=== PATIENT | male | born 1970 | race Hispanic/Latino ===

== ENCOUNTER 2024-01-18 06:28 | Emergency (ER) | payer SELFPAY ==
--- NOTE | ~2024-01-18 | XR_ITS ---
Left ankle Technique: AP, oblique, and lateral views were obtained. Clinical History: Fracture Findings: There is acute fracture of the distal fibula at and just proximal to the level of the ankle mortise, with mild comminution and minimal displacement. Probable very small minimally displaced fra cture of the very anterior aspect of the distal tibial plafond on lateral view.. Ankle mortise and ot her visualized joint spaces are preserved. Soft tissues are otherwise unremarkable. Impression: Acute comminuted minimally displaced fracture the distal fibula, as detailed above. Probable small minimally displaced fracture at the anterior aspect of the distal tibial plafond on la teral view. Reviewed, dictated and finalized at location M. Impression: Acute comminuted minimally displaced fracture the distal fibula, as detailed ab ove. Probable small minimally displaced fracture at the anterior aspect of the dista l tibial plafond on lateral view.
--- NOTE | ~2024-01-18 | XR_ITS ---
XR knee RT 3V 01/18/2024 07:57 INDICATION: Right knee pain after fall PROCEDURE: 3 views right knee COMPARISON: No prior studies for comparison. FINDINGS: Fracture, dislocation or subluxation is not identified. The soft tissues appear within norm al limits. No foreign bodies are identified. IMPRESSION: 1: NO ACUTE BONE OR JOINT ABNORMALITY IDENTIFIED. Reviewed, dictated and finalized at location B.
--- NOTE | ~2024-01-18 | XR_ITS ---
Left foot Technique: AP, oblique, and lateral views were obtained. Clinical History: Injury Findings: Acute fracture the distal fibula at the level ankle mortise is present. No fracture seen of the foot itself. Joint spaces are preserved without erosive or degenerative change. Soft tissues are unremarkable. Impression: Acute fracture the distal fibula at the level of the ankle mortise. Consider dedicated ankle radiogra phic series to further evaluate the ankle. No fracture seen in the foot itself otherwise. Reviewed, dictated and finalized at location . Impression: Acute fracture the distal fibula at the level of the ankle mortise. Consider de dicated ankle radiographic series to further evaluate the ankle. No fracture seen in the foot itself otherwise.
[2024-01-18 06:34] VITALS: BP 143/106; PULSE 100; RESP 18; TEMP 37.1; O2SAT 100
[2024-01-18 06:39] VITALS: BP 143/106; PULSE 99; RESP 18; O2SAT 99
--- NOTE | 2024-01-18 08:07 | ED.LOWEXIN ---
HPI - Extremity Injury (Lower) General Chief Complaint: Extremity Injury, Lower Stated Complaint: left foot pain from fall, No LOC or blood thinner Time Seen by Provider: 01/18/24 07:01 History of Present Illness HPI Narrative: 53-year-old male presenting to the emergency department for evaluation after having a fall from a green house and injuring his left ankle. Patient states he also had some minor tenderness of his right knee. Patient denies striking his head denies loss of consciousness. Patient denies any associated chest pain or shortness breath. Patient does have increased pain with ambulation at the side of the left ankle. Patient does have associated swelling. Patient is neurovascularly intact. Related Data Allergies Allergy/AdvReac Type Severity Reaction Status Date / Time No Known Allergies Allergy Verified 01/18/24 08:15 Review of Systems Review of Systems: All systems reviewed & are unremarkable except as noted in HPI and below Exam Narrative: APPEARANCE: Well appearing, no pain, no distress, well-nourished. HEAD: normocephalic, atraumatic. EYES: PERRLA/EOMI, conjunctivae clear. NOSE: Normal no drainage EARS:TMS clear with good light reflex. THROAT: Pharynx clear, no exudate. NECK: Supple. No adenopathy, no masses. RESPIRATORY: Airway patent, respirations nonlabored. Clear to auscultation bilaterally, no rales, rhonchi, wheezing. CARDIOVASCULAR: Regular rate and rhythm without murmurs rubs or gallops. ABDOMINAL: Soft, nontender, nondistended, normal bowel sounds MUSCULOSKELETAL: Left ankle swelling with lateral tenderness, neurovascularly intact NEURO: Alert. Cranial nerves II through XII intact. Grossly intact SKIN: Warm, dry. Normal Color Course Course Emergency Course: Patient did feel improved with splinting and was comfortable the plan for discharge and close follow-up Vital Signs Vital signs: Vital Signs Temperature 98.7 F 01/18/24 06:34 Pulse Rate 100 01/18/24 06:34 Respiratory Rate 18 01/18/24 06:34 Blood Pressure 143/106 H 01/18/24 06:34 Pulse Oximetry 100 01/18/24 06:34 Oxygen Delivery Room Air 01/18/24 06:34 Temperature 98.7 F 01/18/24 06:34 Pulse Rate 99 01/18/24 06:39 Respiratory Rate 18 01/18/24 06:39 Blood Pressure 143/106 H 01/18/24 06:39 Pulse Oximetry 99 01/18/24 06:39 Oxygen Delivery Room Air 01/18/24 06:34 MDM - Extremity Injury (Lower) MDM Narrative Medical decision making narrative: 53-year-old male presenting to the emergency department for evaluation for left ankle pain. Patient does have a fracture of his distal fibula. Patient was provided a splint and crutches for limited weight-bearing. Patient family were updated on the results of the workup and patient was strongly encouraged close follow-up with Orthopedics. Patient was also provided medications for pain control for home. Differential Diagnosis Differential diagnosis: Likely ankle sprain and strain, acute internal derangement of knee and ankle fracture Imaging Data Radiologist's impression: Impressions Foot X-Ray 01/18/24 06:59 Impression: Acute fracture the distal fibula at the level of the ankle mortise. Consider dedicated ankle radiographic series to further evaluate the ankle. No fracture seen in the foot itself otherwise. Ankle X-Ray 01/18/24 07:49 Impression: Acute comminuted minimally displaced fracture the distal fibula, as detailed above. Probable small minimally displaced fracture at the anterior aspect of the distal tibial plafond on lateral view. Knee X-Ray 01/18/24 08:01 IMPRESSION: 1: NO ACUTE BONE OR JOINT ABNORMALITY IDENTIFIED. Discharge Plan Discharge Clinical Impression: Fracture of distal end of fibula Patient Disposition: Home, Self-Care Condition: Stable Instructions: Antibiotic Form, Ankle Fracture (DC), Crutch Instructions (ED), Splint Care (ED) Additional Instructions: Spl
[2024-01-18] MEDS: HYDROcodone/acetaminophen (*CRX) 5-325 MG TABLET 1 TAB PO (08:15)
[2024-01-18] MEDS: Please add drug allergy info to patient profile. 1 EACH XX (08:16)
[2024-01-18] MEDS: IBUPROFEN 400 MG TABLET 800 MG PO (08:17)
== END 2024-01-18 08:47 | disposition home or self-care (01) ==
PROVIDERS: Emergency Provider Emergency Medicine
DX: S82.832A Other fracture of upper and lower end of left fibula, initial encounter for closed fracture (principal); W13.8XXA Fall from, out of or through other building or structure, initial encounter
CPT/HCPCS: 29515; 73562; 73610; 73630; 99284; A9270

== ENCOUNTER 2024-01-26 01:11 | Day surgery (SDC) | payer OTHER, SELFPAY ==
[2024-01-25 12:22] VITALS: BMI 27.1
--- NOTE | 2024-01-25 12:31 | PC.NURSE ---
Report to the Outpatient Waiting Room, entrance under the green pavilion located off [facility], at time _1130_ on date _[id number]_. Planned Procedure Time: _130pm_.? Time changes happen often and if your time is changed the preop area will call you the afternoon before. - You and your visitor will be asked to self-screen and do not enter if you have any COVID symptoms. Please call surgeon if you need to reschedule. - A mask is optional within the hospital at this time. Patients may have clear liquids (water, carbonated beverages, clear teas, apple juice) until 3 hours prior to surgery with a maximum of 20 ounces. - No food from midnight until time of surgery and no smoking Take only the following medications with a SIP of water on the morning of surgery: ___Hydrocodone DO NOT STOP ANY OF YOUR OTHER PRESCRIPTION MEDICATIONS PRIOR TO SURGERY EXCEPT THE FOLLOWING Medications to discontinue per physician None Please no make-up, nail egyptian, hairspray, perfume, deodorant, or body powder the day of surgery.? No jewelry (including any body piercings) or valuables the day of surgery, leave them at home.? Please take a shower or bath the night before, or the morning of, surgery with an antibacterial soap.? Wear comfortable, loose fitting clothing.? - Jewelry must be removed prior to entering the operating room.? Rings and piercings that are not removed may be cut off. - The hospital will not accept responsibility for valuables.? - Please leave all valuables, including medications, at home the day of surgery. If you are going home after surgery, a licensed automobile drivers must drive you home.? - NO public transportation without another adult if you receive anesthesia. - We recommend that an adult stay with you for 24 hours following discharge. - We also recommend that you do not drive, make important decision, drink alcoholic beverages, or take any drugs that were not prescribed by your health care provider for at least 24 hours after your discharge time. Follow any additional instructions given to you from your surgeon. Telephone instructions given to ___Khalidain/son and Elroy___and asked if any additional questions and then verbalized understanding. Patient advised to call surgeon office or pre surgery nurse liaison [phone] if any additional questions.
[2024-01-26] VITALS (9 sets, daily range): BP systolic 115–179; BP diastolic 77–116; PULSE 85–101; RESP 12–16; TEMP 36.7–37.4; O2SAT 96–100
--- NOTE | ~2024-01-26 | XR_ITS ---
EXAMINATION: XR surgery orthopedic DATE: 01/26/2024 15:48 INDICATION: Distal left fibula fracture. TECHNIQUE: 5 intraoperative fluoroscopic views of the left ankle were obtained. I was not present. Fl uoroscopy exposure time was 295 seconds. COMPARISON: Left ankle radiographs 01/18/2024, 01/25/2024 FINDINGS: There is a comminuted fractured of distal fibula. The main distal fracture fragment demonst rates near-anatomic alignment status post open reduction internal fixation with lateral plate and scr ews. IMPRESSION: 1. Comminuted fracture of distal fibula status post open reduction internal fixation. Reviewed, dictated and finalized at location A. IMPRESSION: 1. Comminuted fracture of distal fibula status post open reduction internal fix ation.
--- NOTE | 2024-01-26 07:22 | WPDHPUPDATE1 ---
History and Physical Update Update Date/Time: 01/26/24 07:22 History and Physical has been reviewed, including an updated exam of the patient. There are NO changes in the patient's condition. Risks, benefits, and alternatives have been discussed and questions answered. Patient agrees to proceed with procedure.
[2024-01-26] MEDS: ACETAMINOPHEN 500 MG TABLET 1000 MG PO (12:11)
[2024-01-26] MEDS: CELECOXIB 200 MG CAPSULE PO (12:11)
[2024-01-26] MEDS: LACTATED RINGERS 1,000 ML 30 ML IV CONT ×2 (12:15→16:15)
--- NOTE | 2024-01-26 14:01 | P.PNAN_ITS ---
Anes - Initial Pre Proc Eval Procedure: Operation Date: 01/26/24 13:30 Proposed Procedures p Open Reduction Internal Fixation of Left Ankle Fracture, Possible Syndesmoitc Repair - Ignacio Bryant MD Date/Time: 01/26/24 14:01 Surgeon: Ignacio Bryant MD Pre Op Diagnosis: left ankle fracture Patient Data Age: 53 Gender: M Height: 1.68 m Weight: 79.6 kg Last Vital Signs Temp 36.7 C 01/26/24 12:19 Pulse 87 01/26/24 12:19 Resp 16 01/26/24 12:19 BP 115/77 01/26/24 12:19 Pulse Ox 100 01/26/24 12:19 O2 Del Method Room Air 01/26/24 12:19 Allergies Allergy/AdvReac Type Severity Reaction Status Date / Time No Known Allergies Allergy Verified 01/26/24 11:45 Home Medications Medication Instructions Recorded Confirmed Type hydrocodone 5 mg-acetaminophen 325 1 tablet PO Q6-8H PRN pain #30 tabs 01/26/24 Rx mg tablet Patient hx anesthesia problems: none Family hx anesthesia problems: none Results Review: All pre-operative results and documents have been reviewed as part of the pre- operative evaluation. FORMERLY [facility] Social History Social History (Updated 01/25/24 @ 12:18 by Antonieta Stearns MA) Smoking status: Never smoker Living arrangements: with family Occupation/Education: occupation Additional occupation/education comments: [employer] Gender identity (if verbalized by the patient): Male Spiritual care concerns: No Anes - Eval Final PreProcedure Day of Procedure 01/26/24 14:01 Patient weight: overweight Heart: regular rate and rhythm Lungs: clear to auscultation Airway: Mallampati scale class II Neurological: alert and oriented Last oral intake: >/= 8 hours ASA classification: I Emergent: no Anesthetic plan: proceed Anesthesia type and monitoring: general LMA and standard monitoring Results Review: All pre-operative results and documents have been reviewed as part of the pre- operative evaluation. Informed Consent: The patient's anesthetic plan and its attendant risks and benefits were discussed with the patient/family/POA. Questions were solicited and answers provided to the satisfaction of the patient/family/POA.
[2024-01-26] MEDS: ceFAZolin 2 GM/D5W 50 ML 2 GM/50 ML BAG IVPB (14:16)
[2024-01-26] MEDS: BUPivacaine HCL 0.5% PF 30 ML VIAL INFILTRATE (15:05)
[2024-01-26] MEDS: fentaNYL CITRATE INJ (*CRX) 100 MCG/2 ML VIAL 25 MCG IV PUSH ×4 (16:21→16:49)
--- NOTE | 2024-01-26 16:40 | W.PM.PROC2 ---
Procedure Note - Detailed Date of Procedure 01/26/24 Pre-op Diagnosis left lateral malleolus fracture Post-op Diagnosis Same Procedure Performed ORIF LEFT LATERAL MALLEOLUS FRACTURE Surgeon Ignacio Bryant MD Anesthesia General Description of Procedure THE PATIENT WAS TAKEN TO THE OR AND PLACED UNDER GENERAL ANESTHESIA. THE LEFT LOWER EXTREMITY WAS PREPPED AND DRAPED IN THE USUAL STERILE FASHION. THE SKIN AROUND THE ANKLE HAD NO SIGNIFICANT LESIONS OR BLISTERING. THE TOURNIQUET WAS INFLATED. AN INCISION WAS MADE OVER THE LATERAL ASPECT OF THE DISTAL LEG AND ANKLE DOWN THROUGH THE SUBCUTANEOUS TISSUES. THE SUPERFICIAL PERONEAL NERVE WAS IDENTIFIED AND PRESERVED. DISSECTION CONTINUED UNTIL THE FRACTURE WAS VISUALIZED. THE FRACTURED WAS REDUCED TO ANATOMIC POSITION AND A LAG SCREW WAS PLACED TO MAINTAIN REDUCTION. NEXT A 5 HOLE ARTHREX PLATE WAS PLACED BRIDGING THE FRACTURE FRACTURE FRAGMENTS AND ATTACHED WITH MULTIPLE SCREWS MAINTAINING THE FRACTURE IN ANATOMIC POSITION. THE ANKLE WAS VISUALIZED UNDER FLUOROSCOPY AND FOUND TO BE STABLE WITH HARDWARE IN GOOD POSITION AND FRACTURE REDUCED. THE SYNDESMOSIS WAS REDUCED AND STRESS VIEWS SHOWED NO INSTABILITY OR ABNORMAL WIDENING OF THE SYNDESMOSIS. THE WOUND WAS WASHED WITH STERILE WATER. THE DEEP LAYERS WERE APPROXIMATED WITH 2-0 VICRYL, THE SUBCUTANEOUS LAYER WAS APPROXIMATED WITH 3-0 VICRYL AND THE SKIN WITH DOLORES. THE WOUND WAS WASHED AND PLACED IN A STERILE DRESSING THEN A PLASTER SPLINT WAS APPLIED. THE PATIENT WAS EXTUBATED AND SENT TO THE RECOVERY ROOM. Estimated Blood Loss 20 Complications No immediate complications Condition Stable Disposition PACU
[2024-01-26] MEDS: LABETALOL HCL INJ 100 MG/20 ML VIAL 10 MG IV PUSH (16:55)
[2024-01-26] MEDS: oxyCODONE HCL (*CRX) 5 MG TAB IR PO (17:42)
== END 2024-01-26 18:17 | disposition home or self-care (01) ==
PROVIDERS: Visit Provider Orthopaedic Surgery
PROC: (CPT 27792; principal; 2024-01-26 13:30)
DX: S82.62XA Displaced fracture of lateral malleolus of left fibula, initial encounter for closed fracture (principal); Z79.891 Long term (current) use of opiate analgesic; W13.8XXA Fall from, out of or through other building or structure, initial encounter; Y92.89 Other specified places as the place of occurrence of the external cause
CPT/HCPCS: 27792; 99199; A9270; C1713; J0690; J1100; J2003; J2250; J2405; J2704; J3010; J7120

== ENCOUNTER 2024-06-06 13:30 | Outpatient (RCR) | payer OTHER, SELFPAY ==
--- NOTE | 2024-05-13 09:58 | OPREHPOC ---
Outpatient Therapy Plan of Care This is a Multidisciplinary Plan of Care that may contain components documented by all disciplines (PT, OT, and ST.) PT Problem 1 PT Problem #1 Knowledge Deficit PT Goal 1 Goal / Goal Update *indep with HEP Target Visit 8 PT Problem 2 PT Problem #2 Pain PT Goal 1 Goal / Goal Update * pt report pain at worst of L ankle to 3/10 Target Visit 10 PT Problem 3 PT Problem #3 Impaired Range of Motion PT Goal 1 Goal / Goal Update increase L ankle active ROM, to improve gait and balance skills: long sittin* DF 10' 2* PF 50' 3* eversion 20' Target Visit 8 PT Problem 4 PT Problem #4 Impaired Strength PT Goal 1 Goal / Goal Update increase strength of L ankle, to improve mobility & gait skills 1* single leg standing L x 15 seconds with good stability 2* pt perform sitting ankle circles x 20 reps with good control of motion 3* pt able to lift with bilateral UE, 40 # box from waist/floor height x 3 reps Target Visit 8 PT Problem 5 PT Problem #5 Impaired Functional Mobility PT Goal 1 Goal / Goal Update * pt ambulate without crutches 300' with good gait pattern Target Visit 8 PT Goal 2 Goal / Goal Update * up/down 12 steps with alternating step pattern, without hand railing Target Visit 8
--- NOTE | 2024-05-13 09:58 | PTOPEVAL1 ---
Assessment and note entered by Elida Montgomery, PT Evaluation Information Assessment Status Evaluation ICD-10 Condition Codes (PT) Pain in left ankle and joints of left foot M25.572 Other ICD-10 Condition Codes ( S82.892A-L lower leg fracture;Z87.81 healed PT) traumatic fracture Onset 01-17-24 Subjective Information Jan 16- fell off a roof; had ORIF on Jan 25; post op had a walking boot, dr told him he could take if off about 1 month ago, but can use if hurting more; have been trying to move ankle some; activity: at home with family, few entry steps, one level; family assist with home tasks; work at [employer], not working at this time; physical work, lifting about 40#; Reported Pain Level Pain Score Self Report Additional Pain Score Comments pain range in the past week -09/20; takes over the counter meds PRN, mostly with sleeping is not using heat/ice for ankle- instruct on PRN use ankle does swell Assessment PT Clinical Summary Elroy is s/p fall with L ankle ORIF on 01-26-24. He has orders for L LE WBAT, wean off crutches, ROM and strengthening of ankle. He is using crutches and is not working. He works at a [employer], lifting up to 40# and physical work. At home, family is assisting with home tasks. Self assessment LE functional scale of 43% limitation in activity level. With the evaluation: decreased L ankle ROM and strength; using crutches for ambulation, L WBAT. L lateral ankle scar is well healed with decreased scar mobility. Slight edema over L ankle- pt reports worse at end of the day. Skilled PT services are indicated for modalities PRN to decrease pain and edema, therapeutic exercises to increase L ankle ROM and strength, gait and balance skills, with education for HEP and progression of gait to without assistive device. Plan of Care Interventions Electrical Stimulation,Gait Training,Hot Pack/Cold Pack,Intermittent Compression Pump,Manual Therapy ,Neuro Re-education,Patient/Caregiver Education, Therapeutic Activities,Therapeutic Exercise, Ultrasound,Other Other Interventions taping, fluidotherapy PT Services Indicated Yes Treatment Frequency and 2x/wk for 8 visits Duration These treatments will address the objective and functional deficits as defined above. The patient will be advanced safely and appropriately in order for the patient to progress towards his/her prior level of function. Additional exercises will be introduced and as well as a comprehensive home exercise program upon discharge, if needed, ?to ensure carryover of functional gains achieved in the clinic. This treatment plan has been reviewed and agreement upon by the patient.
--- NOTE | 2024-06-06 14:12 | PTOPDC ---
Assessment and note entered by Elida Montgomery, PT Assessment Status Discharge ICD-10 Condition Codes (PT) Pain in left ankle and joints of left foot M25.572 Other ICD-10 Condition Codes ( S82.892A-L lower leg fracture;Z87.81 healed PT) traumatic fracture Onset 01-17-24 Subjective Information saw and went back to work today; doing OK; doing everything at home again; not using the crutches; ready to be done with therapy. Reported Pain Level Pain Score Self Report Additional Pain Score Comments stays 1/10 at all times Assessment PT Clinical Summary Elroy has received 8 PT sessions. He saw the dr last week and has been released, with return to full work duty. Compared to the initial evaluation, he has improved in all areas: pain decreased to 1/10; ROM of L ankle is WNL with good strength of L LE; bilateral UE box lift from floor/waist height of 50# x 5 reps with good technique; good gait pattern and alternating step pattern for 12 steps, without a hand railing; single leg standing L x 30 seconds. The goals were met. Discharge PT. He is to continue with HEP and increase activity as tolerated, monitor pain and use ice and rest PRN. Plan of Care PT Services Indicated No
== END 2024-06-06 16:39 | disposition home or self-care (01) ==
LOC: ANHPT 13:30
PROVIDERS: Visit Provider Orthopaedic Surgery
DX: S82.892A Other fracture of left lower leg, initial encounter for closed fracture (principal); Z87.81 Personal history of (healed) traumatic fracture; M25.572 Pain in left ankle and joints of left foot
CPT/HCPCS: 97110; 97112; 97116; 97161; 97530